=== PATIENT | male | born 1970 | race Caucasian/White ===

== ENCOUNTER 2018-01-25 11:38 | Emergency (ER) | payer OTHER ==
[2018-01-25] MEDS: SOD CHLORIDE 0.9% 1,000 ML IV (12:56)
[2018-01-25] MEDS: LABETALOL HCL 20MG INJ IV (12:56)
[2018-01-25] MEDS: morphine 4 MG/ML VIAL IV (12:56)
[2018-01-25] MEDS: ONDANSETRON 4 MG INJ IV (12:56)
[2018-01-25 12:57] LABS: ADD MAN DIFF? NO
[2018-01-25 13:01] LABS: BASOPHILS % 0.3 % (0.0-2.0); EOSINOPHILS # 0.1 10^3/ul (0.0-0.5); EOSINOPHILS % 1.6 % (0.0-7.0); HEMATOCRIT 44.5 % (42.0-52.0); HEMOGLOBIN 14.5 g/dl (14.0-18.0); LYMPHOCYTES # 1.7 10^3/ul (0.8-2.9); LYMPHOCYTES % 19.3 % (15.0-51.0); MEAN CORPUSCULAR HEMOGLOBIN 27.6 pg (29.0-33.0); MEAN CORPUSCULAR HGB CONC 32.6 g/dl (32.0-37.0); MEAN CORPUSCULAR VOLUME 84.6 fl (82.0-101.0); MEAN PLATELET VOLUME 8.9 fl (7.4-10.4); MONOCYTE # 0.9 10^3/ul (0.3-0.9); MONOCYTES % 10.1 % (0.0-11.0); NEUTROPHIL # 5.9 10^3/ul (1.6-7.5); NEUTROPHILS % 68.5 % (39.0-77.0); PLATELET COUNT 289 10^3/UL (140-415); RED BLOOD COUNT 5.26 10^6/ul (4.70-6.10); RED CELL DISTRIBUTION WIDTH 13.8 % (11.5-14.5)
[2018-01-25 13:01] LABS: WHITE BLOOD COUNT 8.7 10^3/ul (4.8-10.8)
[2018-01-25 13:30] LABS: ALANINE AMINOTRANSFERASE 23 IU/L (13-69); ALBUMIN 3.9 g/dl (3.3-4.9); ALBUMIN/GLOBULIN RATIO 1.05; ALKALINE PHOSPHATASE 88 IU/L (42-121); ANION GAP 11 (8-16); ASPARTATE AMINO TRANSFERASE 15 IU/L (15-46); BILIRUBIN,INDIRECT 0.4 mg/dl (0-1.1); BILIRUBIN,TOTAL 0.4 mg/dl (0.2-1.3); BLOOD UREA NITROGEN 15 mg/dl (7-20); CALCIUM 9.3 mg/dl (8.4-10.2); CARBON DIOXIDE 32 mmol/L (21-31); CHLORIDE 102 mmol/L (97-110); CREATININE 0.93 mg/dl (0.61-1.24); GLUCOSE 101 mg/dl (70-220); LIPASE 21 U/L (23-300); POTASSIUM 4.7 mmol/L (3.5-5.1); SODIUM 140 mmol/L (135-144); TOTAL PROTEIN 7.6 g/dl (6.1-8.1)
[2018-01-25 13:59] LABS: TROPONIN-I < 0.012 ng/ml (0.00-0.12)
== END 2018-01-25 15:15 | disposition home or self-care (01) ==
LOC: E/R 11:38
DX: M87.011 Idiopathic aseptic necrosis of right shoulder (principal); I10 Essential (primary) hypertension
CPT/HCPCS: 36415; 73030-50; 80053; 83690; 84484; 85025; 93005; 96374; 96375; 99285-25

== ENCOUNTER 2018-04-04 05:36 | Inpatient (IN) | payer OTHER ==
[2018-04-04] MEDS: DEXAMETHASONE 1 MG TAB PO (06:10)
[2018-04-04] MEDS: traMADol 50 MG TAB PO (06:11)
[2018-04-04] MEDS: GABAPENTIN 300 MG CAP PO ×2 (06:11→21:27)
[2018-04-04] MEDS ORDERED: BUPIVACAINE 0.75%/DEXT (SPINAL) 2 ML INJ (06:36)
[2018-04-04] MEDS ORDERED: morphine SULFATE/PF (10 MG/10 ML) INJ (06:37)
[2018-04-04] MEDS ORDERED: PROPOFOL 20 ML (06:37)
[2018-04-04] MEDS ORDERED: EPINEPHrine 1 MG INJ (06:38)
[2018-04-04] MEDS ORDERED: MIDAZOLAM 1 MG/ML 2 ML INJ (06:44)
[2018-04-04] MEDS ORDERED: THROMBIN 5000 UNIT VIAL (06:53)
[2018-04-04] MEDS ORDERED: CA CHLORIDE 10% 10 ML SYRINGE (06:53)
[2018-04-04] MEDS ORDERED: HYDROmorphONE 0.5 MG/0.5 ML SYG IV ×2 (07:00)
[2018-04-04] MEDS ORDERED: ONDANSETRON 4 MG INJ IV ×3 (07:00→09:00)
[2018-04-04] MEDS ORDERED: ALBUTEROL 0.083% (NEB) 2.5 MG/3 ML AMP HHN (07:00)
[2018-04-04] MEDS ORDERED: METOCLOPRAMIDE 10 MG INJ IV (07:00)
[2018-04-04] MEDS ORDERED: LIDOCAINE 2% (SDV) 5 ML INJ (07:00)
[2018-04-04] MEDS ORDERED: EPHEDrine SULFATE 50 MG/5 ML SYG IV (07:00)
[2018-04-04] MEDS ORDERED: HYDROmorphONE 1 MG/5 ML IV SYRINGE IV ×3 (07:00)
[2018-04-04] MEDS ORDERED: CEFAZOLIN 2 GM/50 ML (PMX) 50 ML IVPB (07:00)
[2018-04-04] MEDS ORDERED: FENTAnyl 50 MCG/ML VIAL IV ×3 (07:00)
[2018-04-04] MEDS ORDERED: NALOXONE (0.4 MG/ML) INJ IV (07:00)
[2018-04-04] MEDS ORDERED: KETOROLAC 30 MG INJ IV ×2 (07:00)
[2018-04-04] MEDS: TRANEXAMIC ACID 1,000 MG in DEXTROSE 5% 100 ML IVPB (07:00)
[2018-04-04] MEDS ORDERED: DIPHENHYDRAMINE 50 MG INJ IV ×3 (07:00→09:00)
[2018-04-04] MEDS ORDERED: MIDAZOLAM 1 MG/ML 2 ML INJ IV (07:00)
[2018-04-04] MEDS ORDERED: hydrALAzine 20 MG INJ IV (07:00)
[2018-04-04] MEDS ORDERED: ZOLPIDEM 5 MG TAB PO ×2 (07:00→09:00)
[2018-04-04] MEDS ORDERED: MEPERIDINE 25 MG INJ IV (07:00)
[2018-04-04] MEDS ORDERED: LABETALOL HCL 20MG INJ IV (07:00)
[2018-04-04] MEDS ORDERED: SOD CHLORIDE 0.9% 100 ML, TRANEXAMIC ACID 3,000 MG IRR (07:00)
[2018-04-04] MEDS ORDERED: PHENYLephrine (100 MCG/ML) 5ML SYG (07:06)
[2018-04-04] MEDS: BUPIVACAINE 0.5% (SDV) 30 ML, morphine SULFATE (PF) 8 MG, EPINEPHrine 0.3 MG, KETOROLAC... IRR (07:43)
[2018-04-04] MEDS: POLYMYXIN/BACITRACIN 1L IRRIG (07:43)
[2018-04-04] MEDS ORDERED: CEFAZOLIN 1 GM INJ (08:50)
[2018-04-04] MEDS ORDERED: ROCURONIUM 50 MG INJ (08:50)
[2018-04-04] MEDS ORDERED: NEOSTIGMINE 3 MG/3 ML SYRINGE (08:57)
[2018-04-04] MEDS ORDERED: GLYCOPYRROLATE 0.4 MG INJ (08:57)
[2018-04-04] MEDS ORDERED: LABETALOL HCL 20MG INJ (08:59)
[2018-04-04] MEDS ORDERED: morphine 2 MG INJ IV ×2 (09:00)
[2018-04-04] MEDS: SENNA/DOCUSATE NA (8.6MG/50MG) TAB PO ×2 (09:00→21:00)
[2018-04-04] MEDS ORDERED: OXYCODONE/ACETAMINOPHEN (5/325) TAB PO (09:00)
[2018-04-04] MEDS ORDERED: KETOROLAC 15 MG INJ IV (09:00)
[2018-04-04] MEDS ORDERED: MAGNESIUM HYDROXIDE 30ML CUP PO (09:00)
[2018-04-04] MEDS ORDERED: ACETAMINOPHEN 500 MG TAB PO (09:00)
[2018-04-04] MEDS: CEFAZOLIN 1 GM/50 ML (PMX) 50 ML IVPB ×2 (10:07→18:19)
[2018-04-04] MEDS: TRANEXAMIC ACID 1,000 MG in DEXTROSE 5% 100 ML IV (10:09)
[2018-04-04 10:17] LABS: ADD MAN DIFF? NO
[2018-04-04 10:19] LABS: WHITE BLOOD COUNT 13.6 10^3/ul (4.8-10.8)
[2018-04-04 10:19] LABS: BASOPHILS % 0.2 % (0.0-2.0); EOSINOPHILS % 0.1 % (0.0-7.0); HEMATOCRIT 36.8 % (42.0-52.0); HEMOGLOBIN 11.9 g/dl (14.0-18.0); LYMPHOCYTES # 1.1 10^3/ul (0.8-2.9); LYMPHOCYTES % 7.8 % (15.0-51.0); MEAN CORPUSCULAR HEMOGLOBIN 27.6 pg (29.0-33.0); MEAN CORPUSCULAR HGB CONC 32.3 g/dl (32.0-37.0); MEAN CORPUSCULAR VOLUME 85.4 fl (82.0-101.0); MEAN PLATELET VOLUME 8.6 fl (7.4-10.4); MONOCYTE # 0.4 10^3/ul (0.3-0.9); NEUTROPHILS % 88.4 % (39.0-77.0); PLATELET COUNT 285 10^3/UL (140-415); RED BLOOD COUNT 4.31 10^6/ul (4.70-6.10); RED CELL DISTRIBUTION WIDTH 13.6 % (11.5-14.5)
[2018-04-04 10:24] LABS: HOLD TRANSMISSIONS 1
[2018-04-04] MEDS: DEXAMETHASONE 2 MG TAB PO ×3 (12:00→23:39)
[2018-04-04] MEDS ORDERED: SUGAMMADEX SODIUM 200 MG/2 ML VIAL IV (14:09)
[2018-04-04] MEDS ORDERED: DEXAMETHASONE 4 MG/ML 1 ML INJ (14:16)
[2018-04-04] MEDS ORDERED: ONDANSETRON 4 MG INJ (14:16)
[2018-04-04] MEDS: LACTATED RINGER'S 1,000 ML IV ×2 (18:19→18:20)
[2018-04-04] MEDS: OXYCODONE/ACETAMINOPHEN (5/325) TAB PO ×2 (19:28→23:40)
[2018-04-05] MEDS: CEFAZOLIN 1 GM/50 ML (PMX) 50 ML IVPB (01:57)
[2018-04-05] MEDS: LACTATED RINGER'S 1,000 ML IV ×2 (03:52→14:52)
[2018-04-05] MEDS: OXYCODONE/ACETAMINOPHEN (5/325) TAB PO ×5 (03:58→23:00)
[2018-04-05 05:40] LABS: ADD MAN DIFF? NO
[2018-04-05 05:42] LABS: WHITE BLOOD COUNT 11.9 10^3/ul (4.8-10.8)
[2018-04-05 05:42] LABS: BASOPHILS % 0.1 % (0.0-2.0); HEMATOCRIT 36.2 % (42.0-52.0); HEMOGLOBIN 11.6 g/dl (14.0-18.0); LYMPHOCYTES # 0.8 10^3/ul (0.8-2.9); MEAN CORPUSCULAR HEMOGLOBIN 27.6 pg (29.0-33.0); MEAN CORPUSCULAR VOLUME 86.2 fl (82.0-101.0); MEAN PLATELET VOLUME 9.3 fl (7.4-10.4); MONOCYTE # 0.5 10^3/ul (0.3-0.9); NEUTROPHIL # 10.5 10^3/ul (1.6-7.5); NEUTROPHILS % 88.6 % (39.0-77.0); PLATELET COUNT 301 10^3/UL (140-415); RED CELL DISTRIBUTION WIDTH 13.9 % (11.5-14.5)
[2018-04-05] MEDS: LEVOTHYROXINE 25 MCG TAB PO (07:59)
[2018-04-05] MEDS: DEXAMETHASONE 2 MG TAB PO (07:59)
[2018-04-05] MEDS: ASPIRIN 81 MG TAB PO (08:47)
[2018-04-05] MEDS: SENNA/DOCUSATE NA (8.6MG/50MG) TAB PO ×2 (08:48→22:07)
[2018-04-05] MEDS ORDERED: morphine LIQ (10 MG/5 ML) CUP PO ×2 (21:00)
[2018-04-05] MEDS: GABAPENTIN 300 MG CAP PO (22:07)
[2018-04-06] MEDS: LACTATED RINGER'S 1,000 ML IV ×2 (00:52→10:52)
[2018-04-06] MEDS: DIAZEPAM 5 MG TAB PO (02:20)
[2018-04-06] MEDS: OXYCODONE/ACETAMINOPHEN (5/325) TAB PO ×4 (03:30→16:46)
[2018-04-06] MEDS: LEVOTHYROXINE 25 MCG TAB PO (05:08)
[2018-04-06 05:29] LABS: ADD MAN DIFF? NO
[2018-04-06 05:35] LABS: BASOPHILS % 0.3 % (0.0-2.0); EOSINOPHILS # 0.1 10^3/ul (0.0-0.5); EOSINOPHILS % 1.2 % (0.0-7.0); HEMATOCRIT 34.3 % (42.0-52.0); HEMOGLOBIN 10.8 g/dl (14.0-18.0); LYMPHOCYTES # 2.3 10^3/ul (0.8-2.9); LYMPHOCYTES % 18.9 % (15.0-51.0); MEAN CORPUSCULAR HEMOGLOBIN 26.9 pg (29.0-33.0); MEAN CORPUSCULAR HGB CONC 31.5 g/dl (32.0-37.0); MEAN CORPUSCULAR VOLUME 85.5 fl (82.0-101.0); MEAN PLATELET VOLUME 9.3 fl (7.4-10.4); MONOCYTE # 1.1 10^3/ul (0.3-0.9); MONOCYTES % 9.6 % (0.0-11.0); NEUTROPHIL # 8.3 10^3/ul (1.6-7.5); NEUTROPHILS % 69.7 % (39.0-77.0); PLATELET COUNT 278 10^3/UL (140-415); RED BLOOD COUNT 4.01 10^6/ul (4.70-6.10); RED CELL DISTRIBUTION WIDTH 14.4 % (11.5-14.5)
[2018-04-06 05:35] LABS: WHITE BLOOD COUNT 11.9 10^3/ul (4.8-10.8)
[2018-04-06] MEDS: ASPIRIN 81 MG TAB PO (09:00)
[2018-04-06] MEDS: SENNA/DOCUSATE NA (8.6MG/50MG) TAB PO (12:16)
[2018-05-01] MEDS ORDERED: SOD CHLORIDE 0.9% 100 ML, TRANEXAMIC ACID 3,000 MG IRR (06:00)
[2018-05-01] MEDS ORDERED: traMADol 50 MG TAB PO (06:00)
[2018-05-01] MEDS ORDERED: GABAPENTIN 300 MG CAP PO (06:00)
[2018-05-01] MEDS ORDERED: DEXAMETHASONE 1 MG TAB PO (06:00)
[2018-05-01] MEDS ORDERED: CEFAZOLIN 2 GM/50 ML (PMX) 50 ML IVPB (06:00)
[2018-05-01] MEDS ORDERED: BUPIVACAINE 0.5% (SDV) 30 ML, morphine SULFATE (PF) 8 MG, EPINEPHrine 0.3 MG, KETOROLAC... IRR (06:00)
[2018-05-01] MEDS ORDERED: TRANEXAMIC ACID 1,000 MG in DEXTROSE 5% 100 ML IVPB (06:00)
== END 2018-04-06 17:50 | disposition home or self-care (01) | DRG 470 ==
LOC: REC 05:36 → MS1 16:52
PROVIDERS: Orthopaedic Surgery
PROC: 0SRB04A Replacement of Left Hip Joint with Ceramic on Polyethylene Synthetic Substitute, Uncemented, Open Approach (ICD-10-PCS; principal; 2018-04-04 06:50)
DX: M87.852 Other osteonecrosis, left femur (principal); M16.7 Other unilateral secondary osteoarthritis of hip
CPT/HCPCS: 72170; 73530; 85025; 86999; 87086; 88304; 88311; 97110; 97116; 97162; 97530

== ENCOUNTER 2018-05-02 05:54 | Inpatient (IN) | payer OTHER ==
[2018-05-02] MEDS: BUPIVACAINE 0.5% (SDV) 30 ML, morphine SULFATE (PF) 8 MG, EPINEPHrine 0.3 MG, KETOROLAC... IRR ×2 (06:00→07:41)
[2018-05-02] MEDS: CEFAZOLIN 1 GM/50 ML (PMX) 50 ML IVPB ×3 (06:30→17:08)
[2018-05-02] MEDS: DEXAMETHASONE 2 MG TAB PO ×3 (06:51→17:08)
[2018-05-02] MEDS: traMADol 50 MG TAB PO (06:51)
[2018-05-02] MEDS: GABAPENTIN 300 MG CAP PO ×2 (06:51→21:35)
[2018-05-02] MEDS ORDERED: morphine SULFATE/PF (10 MG/10 ML) INJ (06:55)
[2018-05-02] MEDS ORDERED: BUPIVACAINE 0.75%/DEXT (SPINAL) 2 ML INJ (06:55)
[2018-05-02] MEDS ORDERED: MIDAZOLAM 1 MG/ML 2 ML INJ (07:01)
[2018-05-02] MEDS ORDERED: PHENYLephrine (100 MCG/ML) 5ML SYG (07:22)
[2018-05-02] MEDS ORDERED: ROCURONIUM 50 MG INJ (07:29)
[2018-05-02] MEDS ORDERED: PROPOFOL 20 ML (07:29)
[2018-05-02] MEDS ORDERED: DEXAMETHASONE 4 MG/ML 1 ML INJ (07:29)
[2018-05-02] MEDS ORDERED: ONDANSETRON 4 MG INJ (07:29)
[2018-05-02] MEDS ORDERED: METOCLOPRAMIDE 10 MG INJ (07:29)
[2018-05-02] MEDS ORDERED: SUCCINYLCHOLINE CHLORIDE 100 MG/5 ML SYG IV (07:29)
[2018-05-02] MEDS ORDERED: LIDOCAINE 100 MG SYRINGE (07:29)
[2018-05-02] MEDS ORDERED: CEFAZOLIN 1 GM INJ (07:29)
[2018-05-02] MEDS ORDERED: SUGAMMADEX SODIUM 200 MG/2 ML VIAL IV (07:30)
[2018-05-02] MEDS ORDERED: THROMBIN 5000 UNIT VIAL (07:35)
[2018-05-02] MEDS ORDERED: CA CHLORIDE 10% 10 ML SYRINGE (07:36)
[2018-05-02] MEDS: TRANEXAMIC ACID 1,000 MG in DEXTROSE 5% 100 ML IVPB (07:51)
[2018-05-02] MEDS: POLYMYXIN/BACITRACIN 1L IRRIG (07:51)
[2018-05-02] MEDS ORDERED: HYDROmorphONE 1 MG/5 ML IV SYRINGE IV ×3 (08:00)
[2018-05-02] MEDS ORDERED: FENTAnyl 50 MCG/ML VIAL IV ×3 (08:00)
[2018-05-02] MEDS ORDERED: MEPERIDINE 25 MG INJ IV (08:00)
[2018-05-02] MEDS ORDERED: DIPHENHYDRAMINE 50 MG INJ IV ×2 (08:00→09:00)
[2018-05-02] MEDS ORDERED: ONDANSETRON 4 MG INJ IV ×2 (08:00→09:00)
[2018-05-02] MEDS ORDERED: ACETAMINOPHEN 500 MG TAB PO (09:00)
[2018-05-02] MEDS: SENNA/DOCUSATE NA (8.6MG/50MG) TAB PO ×2 (09:00→21:35)
[2018-05-02] MEDS ORDERED: morphine 2 MG INJ IV ×2 (09:00)
[2018-05-02] MEDS ORDERED: MAGNESIUM HYDROXIDE 30ML CUP PO (09:00)
[2018-05-02] MEDS ORDERED: OXYCODONE/ACETAMINOPHEN (5/325) TAB PO (09:00)
[2018-05-02] MEDS ORDERED: KETOROLAC 15 MG INJ IV (09:00)
[2018-05-02] MEDS: TRANEXAMIC ACID 1,000 MG in DEXTROSE 5% 100 ML IV ×2 (09:05→11:09)
[2018-05-02] MEDS: LACTATED RINGER'S 1,000 ML IV ×2 (12:57→18:59)
[2018-05-02 13:17] LABS: ADD MAN DIFF? NO
[2018-05-02 13:19] LABS: ABNORMAL IP MESSAGE 1; HEMATOCRIT 35.2 % (42.0-52.0); HEMOGLOBIN 11.2 g/dl (14.0-18.0); LYMPHOCYTES # 0.5 10^3/ul (0.8-2.9); LYMPHOCYTES % 4.5 % (15.0-51.0); MEAN CORPUSCULAR HEMOGLOBIN 26.4 pg (29.0-33.0); MEAN CORPUSCULAR HGB CONC 31.8 g/dl (32.0-37.0); MEAN PLATELET VOLUME 8.9 fl (7.4-10.4); MONOCYTE # 0.1 10^3/ul (0.3-0.9); MONOCYTES % 1.3 % (0.0-11.0); NEUTROPHIL # 9.6 10^3/ul (1.6-7.5); NEUTROPHILS % 93.8 % (39.0-77.0); PLATELET COUNT 329 10^3/UL (140-415); POSITIVE DIFF @See below; RED BLOOD COUNT 4.24 10^6/ul (4.70-6.10); RED CELL DISTRIBUTION WIDTH 14.1 % (11.5-14.5)
[2018-05-02 13:19] LABS: WHITE BLOOD COUNT 10.3 10^3/ul (4.8-10.8)
[2018-05-02] MEDS: OXYCODONE/ACETAMINOPHEN (5/325) TAB PO (21:46)
[2018-05-03] MEDS: ZOLPIDEM 5 MG TAB PO (00:10)
[2018-05-03] MEDS: DEXAMETHASONE 2 MG TAB PO ×2 (00:10→06:47)
[2018-05-03] MEDS: LACTATED RINGER'S 1,000 ML IV (00:11)
[2018-05-03] MEDS: CEFAZOLIN 1 GM/50 ML (PMX) 50 ML IVPB (00:45)
[2018-05-03 05:55] LABS: ADD MAN DIFF? NO; HEMATOCRIT 33.7 % (42.0-52.0); HEMOGLOBIN 10.8 g/dl (14.0-18.0); LYMPHOCYTES # 0.9 10^3/ul (0.8-2.9); LYMPHOCYTES % 5.6 % (15.0-51.0); MEAN CORPUSCULAR HEMOGLOBIN 26.9 pg (29.0-33.0); MEAN PLATELET VOLUME 9.2 fl (7.4-10.4); MONOCYTE # 0.8 10^3/ul (0.3-0.9); MONOCYTES % 4.9 % (0.0-11.0); NEUTROPHIL # 13.8 10^3/ul (1.6-7.5); PLATELET COUNT 366 10^3/UL (140-415); RED BLOOD COUNT 4.01 10^6/ul (4.70-6.10); RED CELL DISTRIBUTION WIDTH 14.5 % (11.5-14.5)
[2018-05-03 05:55] LABS: WHITE BLOOD COUNT 15.4 10^3/ul (4.8-10.8)
[2018-05-03] MEDS: LEVOTHYROXINE 25 MCG TAB PO (06:47)
[2018-05-03] MEDS: OXYCODONE/ACETAMINOPHEN (5/325) TAB PO ×3 (06:52→14:48)
[2018-05-03] MEDS: SENNA/DOCUSATE NA (8.6MG/50MG) TAB PO (08:49)
[2018-05-03] MEDS: ASPIRIN 81 MG TAB PO (08:49)
[2018-05-03] MEDS ORDERED: morphine LIQ (10 MG/5 ML) CUP PO ×2 (15:00)
== END 2018-05-03 14:55 | disposition home or self-care (01) | DRG 470 ==
LOC: REC 05:54 → MS1 12:12
PROVIDERS: Orthopaedic Surgery
PROC: 0SR904A Replacement of Right Hip Joint with Ceramic on Polyethylene Synthetic Substitute, Uncemented, Open Approach (ICD-10-PCS; principal; 2018-05-02 07:00)
DX: M16.7 Other unilateral secondary osteoarthritis of hip (principal); M87.351 Other secondary osteonecrosis, right femur
CPT/HCPCS: 72170; 73530; 85025; 86999; 87086; 88304; 88311; 97110; 97116; 97162; 97530

== ENCOUNTER 2018-09-03 05:28 | Inpatient (IN) | payer MEDICARE, OTHER ==
[~2018-09-03 05:28] MED LIST: BUPIVACAINE 0.5% (SDV) 30 ML, morphine SULFATE (PF) 8 MG, EPINEPHrine 0.3 MG, KETOROLAC... IRR
[2018-09-03] MEDS: GABAPENTIN 300 MG CAP PO ×2 (05:55→20:51)
[2018-09-03] MEDS: DEXAMETHASONE 1 MG TAB PO (05:55)
[2018-09-03] MEDS: CEFAZOLIN 2 GM/50 ML (PMX) 50 ML IVPB (06:00)
[2018-09-03] MEDS ORDERED: CA CHLORIDE 10% 10 ML SYRINGE (06:48)
[2018-09-03] MEDS ORDERED: THROMBIN 5000 UNIT VIAL (06:48)
[2018-09-03] MEDS ORDERED: BUPIVACAINE 0.5%/EPI (SDV) 30 ML INJ (06:48)
[2018-09-03] MEDS ORDERED: MIDAZOLAM 1 MG/ML 2 ML INJ (07:04)
[2018-09-03] MEDS ORDERED: PROPOFOL 20 ML (07:04)
[2018-09-03] MEDS ORDERED: ROCURONIUM 50 MG INJ (07:04)
[2018-09-03] MEDS ORDERED: ROPIVACAINE 0.5 % 30 ML VIAL (07:04)
[2018-09-03] MEDS ORDERED: FENTAnyl 50 MCG/ML VIAL ×2 (07:04→09:01)
[2018-09-03] MEDS: POLYMYXIN/BACITRACIN 1L IRRIG (07:33)
[2018-09-03] MEDS: TRANEXAMIC ACID 1,000 MG in DEXTROSE 5% 100 ML IVPB (07:34)
[2018-09-03] MEDS: PAIN COCKTAIL - VANCOMYCIN IRR (07:43)
[2018-09-03] MEDS ORDERED: ONDANSETRON 4 MG INJ (07:49)
[2018-09-03] MEDS ORDERED: METOCLOPRAMIDE 10 MG INJ (07:49)
[2018-09-03] MEDS ORDERED: DEXAMETHASONE 4 MG/ML 1 ML INJ (07:49)
[2018-09-03] MEDS ORDERED: CEFAZOLIN 1 GM INJ (07:49)
[2018-09-03] MEDS ORDERED: OXYCODONE/ACETAMINOPHEN (5/325) TAB PO (08:00)
[2018-09-03] MEDS ORDERED: LABETALOL HCL 20MG INJ IV (08:00)
[2018-09-03] MEDS ORDERED: hydrALAzine 20 MG INJ IV ×2 (08:00→18:00)
[2018-09-03] MEDS ORDERED: HYDROmorphONE 1 MG/5 ML IV SYRINGE IV (08:00)
[2018-09-03] MEDS ORDERED: DIPHENHYDRAMINE 50 MG INJ IV ×2 (08:00→09:30)
[2018-09-03] MEDS ORDERED: METOCLOPRAMIDE 10 MG INJ IV (08:00)
[2018-09-03] MEDS ORDERED: FENTAnyl 50 MCG/ML VIAL IV ×2 (08:00)
[2018-09-03] MEDS ORDERED: EPHEDrine SULFATE 50 MG/5 ML SYG IV (08:00)
[2018-09-03] MEDS ORDERED: GLYCOPYRROLATE 0.4 MG INJ (08:29)
[2018-09-03] MEDS ORDERED: NEOSTIGMINE 3 MG/3 ML SYRINGE (08:29)
[2018-09-03] MEDS: SOD CHLORIDE 0.9% IRR (08:30)
[2018-09-03] MEDS: TRANEXAMIC ACID 1000 MG IRR (08:30)
[2018-09-03] MEDS ORDERED: KETOROLAC 30 MG INJ (09:04)
[2018-09-03] MEDS ORDERED: MAGNESIUM HYDROXIDE 30ML CUP PO (09:30)
[2018-09-03] MEDS ORDERED: BISACODYL 10 MG SUPP PR (09:30)
[2018-09-03] MEDS ORDERED: LOPERAMIDE 2 MG CAP PO (09:30)
[2018-09-03] MEDS ORDERED: NACL 0.9% 3 ML SYG IV (09:30)
[2018-09-03] MEDS ORDERED: ONDANSETRON 4 MG INJ IV (09:30)
[2018-09-03] MEDS ORDERED: oxyCODONE 5 MG TAB PO ×2 (09:30)
[2018-09-03] MEDS ORDERED: ZOLPIDEM 5 MG TAB PO (09:30)
[2018-09-03] MEDS: ACETAMINOPHEN 1000MG/100ML IV 100 ML IVPB ×2 (09:30→18:14)
[2018-09-03] MEDS: MEPERIDINE 25 MG INJ IV ×2 (09:36→12:15)
[2018-09-03] MEDS: ONDANSETRON 4 MG INJ IV (09:36)
[2018-09-03] MEDS: HYDROmorphONE 1 MG/5 ML IV SYRINGE IV ×4 (09:43→10:06)
[2018-09-03] MEDS: CEFAZOLIN 1 GM/50 ML (PMX) 50 ML IVPB ×2 (09:57→18:13)
[2018-09-03] MEDS: FENTAnyl 50 MCG/ML VIAL IV ×2 (10:34→10:50)
[2018-09-03] MEDS: oxyCODONE 5 MG TAB PO ×2 (12:09→18:13)
[2018-09-03] MEDS: DEXAMETHASONE 2 MG TAB PO ×2 (13:21→18:13)
[2018-09-03] MEDS: SENNA/DOCUSATE NA (8.6MG/50MG) TAB PO (20:51)
[2018-09-04] MEDS: DEXAMETHASONE 2 MG TAB PO ×2 (00:39→06:21)
[2018-09-04] MEDS: oxyCODONE 5 MG TAB PO ×6 (00:40→23:20)
[2018-09-04] MEDS: CEFAZOLIN 1 GM/50 ML (PMX) 50 ML IVPB (02:03)
[2018-09-04] MEDS: ACETAMINOPHEN 1000MG/100ML IV 100 ML IVPB (02:04)
[2018-09-04 05:38] LABS: ADD MAN DIFF? NO
[2018-09-04 05:42] LABS: WHITE BLOOD COUNT 15.7 10^3/ul (4.8-10.8)
[2018-09-04 05:42] LABS: BASOPHILS % 0.1 % (0.0-2.0); HEMATOCRIT 37.8 % (42.0-52.0); HEMOGLOBIN 12.6 g/dl (14.0-18.0); LYMPHOCYTES % 6.3 % (15.0-51.0); MEAN CORPUSCULAR HEMOGLOBIN 27.3 pg (29.0-33.0); MEAN CORPUSCULAR HGB CONC 33.3 g/dl (32.0-37.0); MEAN CORPUSCULAR VOLUME 81.8 fl (82.0-101.0); MEAN PLATELET VOLUME 10.1 fl (7.4-10.4); MONOCYTE # 1.1 10^3/ul (0.3-0.9); MONOCYTES % 7.1 % (0.0-11.0); NEUTROPHIL # 13.5 10^3/ul (1.6-7.5); NEUTROPHILS % 86.1 % (39.0-77.0); PLATELET COUNT 296 10^3/UL (140-415); RED BLOOD COUNT 4.62 10^6/ul (4.70-6.10); RED CELL DISTRIBUTION WIDTH 15.7 % (11.5-14.5)
[2018-09-04] MEDS: LEVOTHYROXINE 25 MCG TAB PO (06:21)
[2018-09-04] MEDS: PANTOPRAZOLE (EC) 40 MG TAB PO (06:21)
[2018-09-04 06:25] LABS: ANION GAP 11 (5-13); BLOOD UREA NITROGEN 17 mg/dl (7-20); CALCIUM 9.3 mg/dl (8.4-10.2); CARBON DIOXIDE 24 mmol/L (21-31); CHLORIDE 104 mmol/L (97-110); CREATININE 0.93 mg/dl (0.61-1.24); Estimated GFR > 60 mL/min (>60); GLUCOSE 197 mg/dl (70-220); POTASSIUM 4.6 mmol/L (3.5-5.1); SODIUM 139 mmol/L (135-144)
[2018-09-04] MEDS: SENNA/DOCUSATE NA (8.6MG/50MG) TAB PO ×2 (09:17→19:55)
[2018-09-04] MEDS ORDERED: AMLODIPINE 2.5 MG TAB PO (15:30)
[2018-09-04] MEDS: hydrALAzine 20 MG INJ IV (15:35)
[2018-09-04] MEDS: ATENOLOL 50 MG TAB PO ×2 (16:01→23:21)
[2018-09-04] MEDS: morphine 2 MG INJ IV ×2 (17:47→21:47)
[2018-09-04] MEDS: GABAPENTIN 300 MG CAP PO (19:54)
[2018-09-04] MEDS ORDERED: ATENOLOL 50 MG TAB PO (21:00)
[2018-09-05] MEDS: morphine 2 MG INJ IV ×3 (01:52→10:12)
[2018-09-05] MEDS: oxyCODONE 5 MG TAB PO ×3 (03:23→12:00)
[2018-09-05] MEDS: LEVOTHYROXINE 25 MCG TAB PO (05:52)
[2018-09-05] MEDS: PANTOPRAZOLE (EC) 40 MG TAB PO (05:52)
[2018-09-05] MEDS: SENNA/DOCUSATE NA (8.6MG/50MG) TAB PO (08:57)
[2018-09-05] MEDS: ATENOLOL 50 MG TAB PO (08:57)
== END 2018-09-05 14:22 | disposition home or self-care (01) | DRG 483 ==
LOC: REC 05:28 → MS1 11:11
PROC: 0RRK0JZ Replacement of Left Shoulder Joint with Synthetic Substitute, Open Approach (ICD-10-PCS; principal; 2018-09-03 07:00)
PROC: 0LS40ZZ Reposition Left Upper Arm Tendon, Open Approach (ICD-10-PCS; 2018-09-03 07:00)
DX: M13.812 Other specified arthritis, left shoulder (principal); S46.212A Strain of muscle, fascia and tendon of other parts of biceps, left arm, initial encounter; I10 Essential (primary) hypertension; E03.9 Hypothyroidism, unspecified
CPT/HCPCS: 73030; 80048; 85025; 86999; 88304; 88311; 93005; 97167